=== PATIENT | female | born 1955 | race Caucasian/White ===

== ENCOUNTER → 2021-10-17 | Day surgery (SDC) | payer MEDICARE ==
[~2021-10-17] VITALS: Ht 165.1 cm; Wt 111.1 kg
[~2021-10-17] MED LIST: ASPIR 8181 MG PO; LIPITOR 10MG TA10 MG PO; SYNTHROID112 MC1 PO; Vitamin D3 PO; ZOLOFT50 MG PO
[2021-10-17 07:49] LABS: HCT 43.4 % (37.0-47.0); HGB 14.4 g/dl (12.5-16.0); MCH 28.2 pg (25.0-31.0); MCHC 33.2 g/dL (32.0-36.0); MCV 85.1 fL (78.0-100.0); MPV 8.9 fL (6.0-9.5); RBC 5.1 M/uL (4.20-5.40); RDW 13.8 % (11.5-14.0); WBC 7.3 K/uL (4.0-10.5)
[2021-10-17 08:18] LABS: ALBUMIN 3.9 g/dL (3.4-5.0); BILIRUBIN - TOTAL 0.8 mg/dL (0.2-1.0); BUN/CREAT RATIO (CALC) 13.7 RATIO; CREATININE 0.95 mg/dL (0.51-0.95); GLOBULIN (CALCULATION) 3.6 g/dL; POTASSIUM 3.7 mmol/L (3.5-5.1); TOTAL PROTEIN 7.5 g/dL (6.4-8.2)
== END | disposition home or self-care (01) ==
LOC: FAS 07:20
PROVIDERS: Surgery
DX: Z12.11 Encounter for screening for malignant neoplasm of colon (principal); Z86.010 Personal history of colon polyps; E78.00 Pure hypercholesterolemia, unspecified; M19.90 Unspecified osteoarthritis, unspecified site; E03.9 Hypothyroidism, unspecified; E78.5 Hyperlipidemia, unspecified; F41.9 Anxiety disorder, unspecified; F32.A Depression, unspecified; Z87.891 Personal history of nicotine dependence; Z79.82 Long term (current) use of aspirin; Z79.899 Other long term (current) drug therapy; Z91.048 Other nonmedicinal substance allergy status
CPT/HCPCS: 36415; 80053; J2250; J2704; J7120